=== PATIENT | male | born 1970 | race Caucasian/White ===

== ENCOUNTER 2016-10-07 09:46 | Emergency (ER) | payer OTHER ==
[~2016-10-07] VITALS: Ht 193 cm; Wt 79.4 kg
[2016-10-07 09:52] VITALS: BP 110/68
--- NOTE | 2016-10-07 09:55 | ED HAND/WRIST INJURY COMPLAINT ---
History of Present Illness General Chief Complaint: Hand or Wrist Injury Stated Complaint: LFT HAND INJURY Source: patient Exam Limitations: no limitations Vital Signs & Intake/Output Vital Signs & Intake/Output Vital Signs Date Time Temp Pulse Resp B/P B/P Pulse O2 O2 Flow FiO2 Mean Ox Delivery Rate 10/07 0952 97.0 71 18 110/68 100 Room Air Allergies Coded Allergies: No Known Allergies (10/07/16) Reconcile Medications Ibuprofen 600 MG TABLET 1 TAB PO TID PRN PAIN with food Oxycodone HCl/Acetaminophen (Percocet 5-325 MG Tablet) 5 MG-325 MG TABLET 1 TAB PO BID PRN PAIN Triage Note: PT STATING HE PUNCHED A REFRIGERATOR ON SUNDAY AND NOW HAS L HAND PAIN. Triage Nurses Notes Reviewed? yes HPI: Julián is a 46-year-old male who arrives through triage to room 1 for evaluation of left hand pain. He reportedly punched a refrigerator on Sunday because he was angry. He reports he has been playing basketball all week which has been aggravating the pain. He has taken nothing for pain, no ice or pain medication. He denies any other injury. Pain is mild at this time (OJ FANG APRN) Past History Travel History Traveled to [place] past 21 day No Medical History Any Pertinent Medical History? see below for history Neurological: NONE EENT: NONE Cardiovascular: NONE Respiratory: NONE Gastrointestinal: NONE Hepatic: NONE Renal: NONE Musculoskeletal: NONE Psychiatric: bipolar disease Endocrine: NONE Blood Disorders: NONE Cancer(s): NONE Surgical History Surgical History: TONSILLECTOMY Psychosocial History What is your primary language Malian Tobacco Use: Current Daily Use Daily Tobacco Use Amount/Type: => 5 Cigarettes daily ETOH Use: occasional use Illicit Drug Use: marijuana Family History Hx Contributory? No (OJ FANG APRN) Review of Systems Review of Systems Constitutional: Reports: no symptoms. EENTM: Reports: no symptoms. Respiratory: Reports: no symptoms. Cardiovascular: Reports: no symptoms. GI: Reports: no symptoms. Genitourinary: Reports: no symptoms. Musculoskeletal: Reports: see HPI, joint pain, joint swelling. Skin: Reports: no symptoms. Neurological/Psychological: Reports: no symptoms. Hematologic/Endocrine: Reports: no symptoms. Immunologic/Allergic: Reports: no symptoms. All Other Systems: Reviewed and Negative (OJ FANG APRN) Physical Exam Physical Exam General Appearance: well developed/nourished, mild distress Head: atraumatic Eyes: Bilateral: PERRL, EOMI. Ears, Nose, Throat: normal pharynx, normal ENT inspection, hearing grossly normal Neck: normal inspection, supple Cardiovascular/Respiratory: normal breath sounds, regular rate/rhythm Back: normal inspection Hand Left: ecchymosis, swelling, tender (SEE DIAGRAM) Hand Right: normal inspection, normal range of motion Skin: intact, normal color, warm/dry Lymphatic: no anterior cervical loren Diagram Hands Front 1) Ecchymosis Hands Back 1) Ecchymosis, tenderness, swelling (OJ FANG APRN) Progress Differential Diagnosis: contusion, fracture Plan of Care: Orders Procedure Date/time Status XRY-HAND, 3 View LEFT 10/07 953 Active Diagnostic Imaging: Viewed by Me: Radiology Read. Discussed w/RAD: Radiology Read. Radiology Impression: SEE BELOW Comments: PATIENT: JULIÁN CASTILLO PRESENT AGE: 46 PATIENT ACCOUNT NO: [id number] : 69 LOCATION: [facility] ORDERING PHYSICIAN: OJ FANG APRN SERVICE DATE: 10/07/16 EXAM TYPE: RAD - XRY-HAND, LEFT EXAMINATION: XR HAND, LEFT CLINICAL INFORMATION: Left hand pain, trauma. COMPARISON: None. TECHNIQUE: AP, lateral, and oblique views of the left hand. FINDINGS: An oblique fracture is seen at the base of the fifth metacarpal bone without displacement or significant angulation. There is overlying soft tissue swelling. A deformity is identified at the proximal phalanx of the fifth digit presumably related to prior trauma. No additional findings are seen. The carpal bones appear unremarkable. IMPRESSION: Nondisplaced fracture is seen at the base of the fifth metacarpal bone without visualized displacement or significant angulation. Overlying soft tissue swelling. DICTATED BY: MIKE MALONE MD DATE/TIME DICTATED:10/07/161040 CONTRACT AGENT:GAIL DATE/TIME TRANSCRIBED:10/07/161040 CONFIDENTIAL, DO NOT COPY WITHOUT APPROPRIATE AUTHORIZATION. <Electronically signed in Other Vendor System> SIGNED BY: MIKE MALONE MD 10/07/16 1046 (OJ FANG APRN) Departure Departure Time of Disposition: 110 Disposition: HOME OR SELF CARE Condition: Stable Clinical Impression Primary Impression: Metacarpal bone fracture Qualifiers: Encounter type: initial encounter Metacarpal bone: fifth Fracture type: closed Metacarpal location: other portion of metacarpal Fracture alignment : nondisplaced Laterality: left Qualified Code: S62.397A - Other fracture of fifth metacarpal bone, left hand, initial encounter for closed fracture Referrals: RICHELLE RAYMOND APRN Additional Instructions: PLEASE FOLLOW UP WITH dR. DUENAS THIS WEEK. uSE ice 3-4 TIMES A DAY FOR THE NEXT 3-4 DAYS. iBUPROFEN 600 MG THREE TIMES A DAY FOR PAIN. PERCOCET NEEDED FOR INCREASED PAIN. PLEASE KEEP SPLINT ON UNTIL FOLLOW UP WITH DR DUENAS. Departure Forms: Customer Survey General Discharge Information Prescriptions: Current Visit Scripts Oxycodone HCl/Acetaminophen (Percocet 5-325 MG Tablet) 1 TAB PO BID PRN PAIN #10 TAB Ibuprofen 1 TAB PO TID PRN PAIN #30 TAB with food (OJ FANG APRN) PA/STORE MANAGER Co-Sign Statement Statement: ED Attending supervision documentation- I saw and evaluated the patient. I have also reviewed all the pertinent lab results and diagnostic results. I agree with the findings and the plan of care as documented in the PA's/STORE MANAGER's documentation. x I have reviewed the ED Record and agree with the PA's/STORE MANAGER's documentation. [] Additions or exceptions (if any) to the PAs/STORE MANAGER's note and plan are summarized below: [] (EKATERINA ZEE,IDANIA) Procedures Splinting Location: LEFT HAND Manual Alignment Performed: No Hand-Made Type: orthoglass Splint: ulnar Splint Applied By: splint applied by me Pre-Proc Neuro Vasc Exam: normal Post-Proc Neuro Vasc Exam: normal Progress: TOLERATED WELL (OJ FANG APRN)
--- NOTE | 2016-10-07 10:46 | RADIOLOGY REPORT ---
EXAMINATION: XR HAND, LEFT CLINICAL INFORMATION: Left hand pain, trauma. COMPARISON: None. TECHNIQUE: AP, lateral, and oblique views of the left hand. FINDINGS: An oblique fracture is seen at the base of the fifth metacarpal bone without displacement or significant angulation. There is overlying soft tissue swelling. A deformity is identified at the proximal phalanx of the fifth digit presumably related to prior trauma. No additional findings are seen. The carpal bones appear unremarkable. IMPRESSION: Nondisplaced fracture is seen at the base of the fifth metacarpal bone without visualized displacement or significant angulation. Overlying soft tissue swelling.
[2016-10-07] MEDS ORDERED: IBUPROFEN600 M1 PO (11:04)
[2016-10-07] MEDS ORDERED: PERCOCET 5-3251 EACH PO (11:04)
== END 2016-10-07 11:09 ==
LOC: ERH 09:46
DX: S62.347A Nondisplaced fracture of base of fifth metacarpal bone, left hand, initial encounter for closed fracture (principal); W22.09XA Striking against other stationary object, initial encounter; Y93.89 Activity, other specified; Y92.9 Unspecified place or not applicable
CPT/HCPCS: 73130-LT